=== PATIENT | female | born 1985 | race Caucasian/White ===

== ENCOUNTER 2022-11-04 14:12 | Outpatient (REF) | payer MEDICAID, SELFPAY | END 2022-11-04 14:13 | disposition home or self-care (01) | LOC: HO.LAB 14:12 | PROVIDERS: PCP Family Medicine; Visit Provider Nurse Practitioner Family | DX: N20.0 Calculus of kidney (principal); R39.15 Urgency of urination; R35.0 Frequency of micturition; N39.0 Urinary tract infection, site not specified; Z79.899 Other long term (current) drug therapy | CPT/HCPCS: 87086; 99202 ==

== ENCOUNTER 2023-05-31 14:00 | Outpatient (RCR) | payer MEDICAID, SELFPAY | END 2023-06-28 10:58 | disposition home or self-care (01) | LOC: HO.OT 14:00 | PROVIDERS: PCP Physician Assistant; Visit Provider Student in an Organized Health Care Education/Training Program | DX: F07.81 Postconcussional syndrome (principal) | CPT/HCPCS: 97165; 97530 ==

== ENCOUNTER 2025-06-06 12:00 | Emergency (ER) | payer MEDICAID, SELFPAY ==
[2025-06-06 12:22] VITALS: BP 123/58; PULSE 77; RESP 18; TEMP 36.3; O2SAT 98; BMI 32.1
--- NOTE | 2025-06-06 12:32 | ED_ITS ---
HPI - General Adult General Chief complaint: General Medical Stated complaint: exposed to carbon monoxide this morning Time Seen by Provider: 06/06/25 13:57 Source: patient and RN notes reviewed Mode of arrival: ambulatory Limitations: no limitations History of Present Illness ED Provider: Elsa Naylor PA-C HPI narrative: This is a 39-year-old female who presents emergency department with concerns of being exposed to carbon monoxide this morning. Patient reports that she was awoken by her carbon monoxide alarm at 7:00 a.m., she open of all the windows until it stopped. She fell back asleep at 10:00 a.m. she woke up and called the fire department who cleared the house. She states that she has a headache, dizziness and some nausea. Reports that she has been in her usual state of health over the last several days. No other complaints or concerns at this time. MD complaint: Carbon monoxide exposure Onset (ago): hour(s) Treatments prior to arrival: none Related Data Home Medications ?Medication ?Instructions ?Recorded ?Confirmed gabapentin 300 mg capsule 900 - 1,200 mg PO BEDTIME NM N 11/03/22 insomnia sertraline 100 mg tablet 100 mg PO DAILY 11/03/22 sertraline 50 mg tablet 0 mg PO 11/03/22 zolpidem 10 mg tablet 5 - 10 mg PO BEDTIME PRN ins omnia 11/03/22 Previous Rx's ?Medication ?Instructions ?Recorded pyridoxine (vitamin B6) 100 mg 100 mg PO DAILY 90 days #90 tabs 11/04/22 tablet Allergies Allergy/AdvReac Type Severity Reaction Status Date / Time No Known Allergies Allergy Verified 06/06/25 12:26 Review of Systems 2 Review of Systems: Constitutional : No Fever, No Chills ENT/Mouth : No sore throat, No Rhinorrhea Eyes: No Eye Pain, No Swelling, No Redness Cardiovascular : No Chest Pain, No SOB Respiratory : No Cough, No Sputum Gastrointestinal : No Nausea, No Vomiting, No Diarrhea, No abdominal Pain Genitourinary : No Dysuria, No Hematuria Musculoskeletal : No joint pain, No Myalgias, No Joint Swelling Skin : No Skin Lesions Neuro : No Weakness, No Numbness, + Headache All other systems reviewed and are negative Yes all other systems are reviewed and are negative Constitutional: Constitutional: Reports as per HPI [facility] Past Medical History Medical History Anxiety Asthma Back pain Concussion Depression Dry skin Headache Sleep disorder Social History Social History Advance Directives: No Advance Directives Information Provided: Yes Do you have a plan to hurt others: No Plan Physical Exam ED Vital Signs: Vital Signs - 24 hr 06/06/25 12:22 Temperature 97.4 F Pulse Rate 77 Respiratory Rate 18 Blood Pressure 123/58 L Pulse Oximetry 98 Oxygen Delivery Method Room Air BMI result Body Mass Index 32.1 Const General: cooperative, comfortable and no acute distress Orientation/consciousness: patient oriented x3 Limitations: no limitations HENMT Head: Yes normal to inspection, Yes normocephalic and Yes atraumatic Ears: hearing grossly normal bilaterally General nose exam: Normal external nose present Face and sinus: Yes normal facial exam Mouth: Normal oral and palatal mucosa present, oropharynx normal and moist mucous membranes Throat: Yes posterior oropharynx normal Eyes General: appearance normal, both eyes and all related structures Eyelids: Yes eyelids normal Conjunctivae: conjunctivae normal Sclerae: sclerae normal Pupils: Equal, round and reactive pupils present EOM: EOMs intact bilaterally Neck Neck: Yes normal visual inspection, Yes full ROM and Yes no lymphadenopathy Lymphatic: no lymphadenopathy noted Chest Chest palpation & inspection: normal inspection of the chest Resp Effort & Inspection: normal respiratory effort and able to speak in complete sentences Auscultation: clear to auscultation bilaterally, no crackles, no rales, no rhonchi and no wheezes Cardio Rate: regular rate Rhythm: regular rhythm Heart sounds: S1 normal heart sound present and S2 normal heart sound present GI Inspection: Yes normal to inspection Skin General skin exam: no rashes or lesions noted Trauma: no lacerations or abrasions Wounds: no wounds Neuro General: patient oriented x3 and moves all extremities Cranial nerves: Yes CN's II-XII intact bilaterally, Yes Equal, round and reactive pupils present, Yes Ability to bilaterally rotate head present and Yes Ability to bilaterally elevate shoulders present Cognition (Neuro): normal cognition Gait exam (Neuro): Normal gait present Motor exam (neuro): 5/5 motor strength present throughout and Pronator motor function not present Extrem General: Yes normal to inspection Right upper extremity: normal to inspection Left upper extremity: normal to inspection Right lower extremity: normal to inspection Left lower extremity: normal to inspection Medical Decision Making Medical Decision Making [facility] Narrative: This is a [id number] who presents to the ER with concerns of carbon monoxide exposure which occurred this morning. Pt welll appearing, under no acute distress. She is neurologically intact. Reports some headaches, dizziness and nausea. Upon arrival of the fire department at her home, no carbon monoxide was detected. Will obtain labs and carbon monoxide level. >> Labs return, carbon monoxide level 0.4, which is noromal. I discussed case with my attending physician, Dr. Joy, no additional interventions needed at this time. Pt re-evaluated, she states that her symptoms have improved. Discussed strict return precautions, and to ensure that she gets her heat fixed in her home to prevent this occurring in the future. Shee understands and agrees with plan. Stable for d.c Differential Diagnosis Differential Diagnoses: The differential diagnosis associated with the presentation includes carbon monoxide poisoning, carbon monoxide exposure, headache, electrolyte derangement Lab Data [facility] Lab Attestation statement: I reviewed the patient's lab results. see mdm 06/06/25 12:51 06/06/25 12:51 Labs: Lab Results 06/06/25 06/06/25 Range/Units 12:51 12:56 WBC 6.9 (4.8-10.8) X10*3/uL RBC 4.56 (4.20-5.50) X10*6/uL Hgb 13.3 (12.0-16.0) g/dl Hct 39.4 (37.0-47.0) % MCV 86.4 (80.0-98.0) fL MCH 29.2 (27.0-33.0) pg MCHC 33.8 (31.0-35.0) g/dl RDW 12.6 (11.0-16.0) % Plt Count 282 (160-400) X10*3/uL MPV 8.7 L (9.4-12.3) fL Immature Gran % (Auto) 0.3 (0.0-0.4) % Neut % (Auto) 60.2 (45-73) % Lymph % (Auto) 31.6 (20-40) % [place] % (Auto) 3.5 (2-11) % Eos % (Auto) 3.7 (0-4) % Baso % (Auto) 0.7 (0-2) % Lymph # (Auto) 2.2 (1.2-4.9) X10*3/uL [place] # (Auto) 0.2 (0.1-1.2) X10*3/uL Eos # (Auto) 0.3 (0.0-0.4) X10*3/uL Baso # (Auto) 0.1 (0.0-0.2) X10*3/uL Abs Immat Gran (auto) 0.02 (0.00-0.03) X10*3/uL Absolute Neuts (auto) 4.2 (2.0-8.3) x10*3/uL Absolute Nucleated RBC 0.000 (0.0-0.012) X10*3/uL Nucleated RBC % (auto) 0.0 (0.0-0.2) /100WBC Carboxyhemoglobin % 0.4 % Sodium 142 (135-145) mmol/L Potassium 3.9 (3.3-5.1) mmol/L Chloride 107 (96-108) mmol/L Carbon Dioxide 28 (22-29) mmol/L Anion Gap 11 L (12-20) BUN 9 (9-16) mg/dL Creatinine 0.65 (0.5-1.4) mg/dL Estim Creat Clear Calc 130.1 Estimated GFR > 60 Random Glucose 88 (60-115) mg/dL Calcium 9.9 (8.4-10.2) mg/dL Total Bilirubin 0.4 (0.0-1.0) mg/dL Direct Bilirubin 0.1 (0.0-0.5) mg/dL AST 20 (5-31) U/L ALT 27 (0-31) U/L Alkaline Phosphatase 104 (39-117) U/L Total Protein 7.6 (6.5-8.0) g/dL Albumin 5.1 H (3.5-5.0) g/dL Radiology Impression Discussion of test interpretation with radiology: I have reviewed the radiologist's reading. Discharge Plan Discharge Clinical Impression: Carbon monoxide exposure Patient Disposition: Home, Self-Care Instructions: Contact Precautions (ED) Additional Instructions: You were seen in the ER due to possible carbon monoxide exposure. We performed blood work on you and your carbon monoxide level was normal. Please continue using your carbon monoxide detectors and please do not use your heaters until they are adequately inspected. If any new or worsening symptoms occur including but not limited to worsening headache, fatigue, dizziness, please return for re-evaluation. Prescriptions: No Action sertraline 50 mg tablet 0 mg PO gabapentin 300 mg capsule 900 - 1,200 mg PO BEDTIME PRN (Reason: insomnia) zolpidem 10 mg tablet 5 - 10 mg PO BEDTIME PRN (Reason: insomnia) sertraline 100 mg tablet 100 mg PO DAILY pyridoxine (vitamin B6) 100 mg tablet 100 mg PO DAILY 90 Days Qty: 90 1RF Stand Alone Forms: Work/School Release Interventions: ED Discharge Assessment Last Done: 06/06/25 14:33 Discharge Date/Time: 06/06/25 14:33 Print Language: Mont[place]
[2025-06-06 12:55] LABS: MANUAL DIFF FLAG NO
[2025-06-06 12:56] LABS: Hematocrit 39.4 % (37.0-47.0); Hemoglobin 13.3 g/dl (12.0-16.0); Imm Gran Abs Auto 0.02 X10*3/uL (0.00-0.03); Imm Gran Pct Auto 0.3 % (0.0-0.4); Lymphocytes Absolute Auto 2.2 X10*3/uL (1.2-4.9); Mean Corpuscular HGB Conc 33.8 g/dl (31.0-35.0); Mean Corpuscular Hemoglobin 29.2 pg (27.0-33.0); Mean Corpuscular Volume 86.4 fL (80.0-98.0); NRBC Abs Auto 0.000 X10*3/uL (0.0-0.012); NRBC Pct Auto 0.0 /100WBC (0.0-0.2); Platelet Count 282 X10*3/uL (160-400); Red Blood Count 4.56 X10*6/uL (4.20-5.50); White Blood Count 6.9 X10*3/uL (4.8-10.8)
[2025-06-06 12:59] LABS: Carbon Monoxide POC 0.4 %
[2025-06-06 13:17] LABS: Alanine Aminotransferase 27 U/L (0-31); Albumin Level 5.1 g/dL (3.5-5.0); Alkaline Phosphatase 104 U/L (39-117); Anion Gap 11 (12-20); Aspartate Amino Transferase 20 U/L (5-31); Blood Urea Nitrogen 9 mg/dL (9-16); Calcium 9.9 mg/dL (8.4-10.2); Carbon Dioxide 28 mmol/L (22-29); Chloride 107 mmol/L (96-108); Creatinine Clr Calc Pharmacy 130.1; Estimated Glomerular Filt Rate > 60; Potassium 3.9 mmol/L (3.3-5.1); Sodium 142 mmol/L (135-145); Total Protein 7.6 g/dL (6.5-8.0)
[2025-06-06 14:33] VITALS: BP 123/58; PULSE 77; RESP 18; TEMP 36.3; O2SAT 98
== END 2025-06-06 14:33 | disposition home or self-care (01) ==
PROVIDERS: Physician Assistant Medical; Emergency Provider Emergency Medicine Emergency Medical Services; PCP Physician Assistant
DX: T58.91XA Toxic effect of carbon monoxide from unspecified source, accidental (unintentional), initial encounter (principal); R51.9 Headache, unspecified; R42 Dizziness and giddiness; R11.0 Nausea; Z79.899 Other long term (current) drug therapy
CPT/HCPCS: 36415; 80048; 80076; 82375; 85025; 99282; 99283